=== PATIENT | male | born 2000 | race Caucasian/White ===

== ENCOUNTER 2021-06-08 13:19 | Emergency (ER) | payer SELFPAY ==
--- NOTE | 2021-06-08 13:23 | ECG_ITS ---
[facility] Test Date: 2021-06-08 Pat Name: Pool El Department: Room: Gender: Male Flexo Operator: : 2000 Requested By: Angie Osorio Order Number: [id number] Martha MD: Tato Velazquez M.D. Measurements Intervals Taylor Rate: 84 P: 20 NC: 141 QRS: 39 QRSD: 101 T: 11 QT: 334 QTc: 396 Interpretive Statements SINUS RHYTHM WITH SINUS ARRHYTHMIA No previous ECG available for comparison Electronically Signed On 06-09-2021 0:54:08 CDT by Tato Velazquez M.D. [id number]
--- NOTE | 2021-06-08 13:23 | XR_ITS ---
WS: [id number] XR chest 1V portable [id number] REASON FOR EXAM: chest pain FINDINGS: The heart and the mediastinum are within normal limits. No active pulmonary parenchymal or pleural disease is noted. The bony thorax is intact. XR/XR chest 1V portable [id number] IMPRESSION: No acute chest abnormality.
[2021-06-08 13:48] VITALS: BP 163/95; PULSE 111; RESP 18; TEMP 37.7; O2SAT 97; BMI 50.9
[2021-06-08 22:25] VITALS: BP 136/85; PULSE 71; RESP 18; O2SAT 98
--- NOTE | 2021-06-08 22:28 | W.ED.CHESTPA ---
HPI - Chest Pain General: Chief Complaint: Chest Pain Stated Complaint: CHEST PAINS Time Seen by Provider: 06/08/21 22:25 History of Present Illness: HPI narrative: Patient is a 21-year-old male comes to the ED with chest pain. Patient says he has a history of anxiety and has had similar chest pain with like this before. He was riding tractor at work earlier today when when symptoms started. Says he has been trying to drink a lot of water since he has been outside working in the heat for the past couple days. He described having a deep aching pain in the center of chest. He says he took a couple aspirin before coming to the ED. Patient did state that he has got a lot of financial and work-related stress going on currently and thinks that could be the cause of his symptoms. Patient said his chest pain resolved when he arrived here to the ED. While in the ED waiting room and when patient was put back into her room here in the ED he had no chest pain and his symptoms had resolved completely. Patient says he felt completely normal. Denied any shortness of breath, nausea or vomiting upon symptom onset. Associated symptoms: Deny abdominal pain, dyspnea, fever(s), nausea, palpitations or vomiting Review of Systems Const: Denies: fever(s), chills or fatigue Eyes: Denies: change in vision or eye discomfort ENMT: Denies: throat pain, odynophagia, nasal discharge or nasal congestion Card: Reports: chest pain (Resolved upon arrival to the ED.); Denies: palpitations, edema, swelling of feet/ankles, dyspnea on exertion or orthopnea Resp: Denies: dyspnea, productive cough or non-productive cough GI: Denies: abdominal pain, nausea, vomiting, diarrhea, constipation or hematochezia : Denies: flank pain, difficulty urinating, dysuria or hematuria Musc: Denies: neck pain, back pain or extremity swelling Skin/Breast: Denies: rash or new lesions Neuro: Denies: headache(s), numbness in extremities or weakness in extremities Physical Exam Const: COMMON NORMALS: no acute distress, patient oriented x3 and alert GENERAL APPEARANCE: cooperative and comfortable NUTRITIONAL APPEARANCE: obese HENMT: COMMON NORMALS: normocephalic HEAD & SCALP: normocephalic MOUTH: Normal oral and palatal mucosa present THROAT: posterior oropharynx normal and uvula midline Eye: COMMON NORMALS: Equal, round and reactive pupils present PUPIL: Yes Equal, round and reactive pupils present Neck/C-Spine: COMMON NORMALS: supple GENERAL: Yes normal visual inspection Resp: COMMON NORMALS: normal respiratory effort, No retractions, No use of accessory muscles and clear to auscultation bilaterally AUSCULTATION: clear to auscultation bilaterally Cardio: COMMON NORMALS: regular rate, regular rhythm, S1 normal heart sound present, S2 normal heart sound present, No gallops present (Cardio), No clicks present (Cardio), No murmurs present (Cardio) and Peripheral pulses 2+ throughout RATE: regular rate RHYTHM: regular rhythm HEART SOUNDS: S1 normal heart sound present and S2 normal heart sound present PERIPHERAL PULSES: Peripheral pulses 2+ throughout GI: COMMON NORMALS: Normal to inspection, nondistended, normoactive bowel sounds present, Soft to palpation, non-tender and no masses INSPECTION: Yes central obesity PALPATION: Yes Soft to palpation : COMMON NORMALS: Yes no CVA tenderness BLADDER/KIDNEY EXAM: Yes no CVA tenderness Back/Pelvis: COMMON NORMALS: no CVA tenderness Extremity: COMMON NORMALS: normal to inspection Neuro: COMMON NORMALS: patient oriented x3 and moves all extremities SENSORIUM/ORIENTATION: Yes alert Skin: GENERAL SKIN EXAM: dry skin Course Vital Signs: Vital signs: Vital Signs Temperature 99.8 F H 06/08/21 13:48 Pulse Rate 78 06/08/21 22:58 Respiratory Rate 18 06/08/21 22:58 Blood Pressure 136/85 06/08/21 22:25 Pulse Oximetry 98 06/08/21 22:58 MDM - Chest Pain MDM Narrative: Medical decision making narrative: Patient is a 21-year-old male comes to the ED with chest pain. Patient has a history of anxiety and panic attacks with similar chest pain. By the time patient got to the ED his chest pain had resolved. Patient says he has been under a lot of work and financial stress lately. Chest x-ray was normal and EKG showed normal sinus rhythm with no ST segment elevation or depression seen. Vitals are stable. Exam of patient is benign he appears in no acute distress or pain. Patient diagnosed with noncardiac chest pain and discharged home. Told to follow-up with PCP in 7 to 10 days reevaluation. Return ED precautions given. Patient understood agree with plan. Imaging Data^: CXR: Attestation: I personally reviewed and interpreted this imaging study as follows: Radiologist's impression: [facility] [address] [place] [address] XRay Report Signed Patient: Pool El Unit #: [id number] : 2000 Age/Sex: 21 / M ADM Date: 06/08/21 Loc: ER Room/Bed: Attending Dr: Ordering Provider/Ordering MD: Angie Osorio Date of Service: 06/08/21 Procedure(s): XR chest 1V portable [id number] Accession Number(s): [id number] Report Number: [id number] WS: [id number] XR chest 1V portable [id number] REASON FOR EXAM: chest pain FINDINGS: The heart and the mediastinum are within normal limits. No active pulmonary parenchymal or pleural disease is noted. The bony thorax is intact. XR/XR chest 1V portable [id number] IMPRESSION: No acute chest abnormality. Dictated By: Dima Menon Jr, MD Signed By: Dima Menon Jr, MD Signed Date/Time: 06/08/21 135 DD/ 1357 EKG Data^: EKG 1: Attestation: I personally reviewed and interpreted this EKG as follows: EKG interpretation date: 06/08/21 Interpretation: Normal sinus rhythm, 84 bpm, no ST segment elevation or depression seen. Discharge Plan Discharge Patient Disposition: Home Clinical Impression: Chest pain, non-cardiac Condition: Stable Discharge Orders: Discharge ED (Routine); Ordered 06/08/21 Ordered By: Nabeel Kimball Referrals: Sumit Freeman DO [Primary Care Provider] - Discharge Diet: Regular Discharge Activity: Resume usual activity Patient Instructions: Stress (ED), Noncardiac Chest Pain (ED) Activity Restrictions/Additional Instructions: Follow-up with medical provider as directed in 5 days for reevaluation. Make sure you are drinking plenty of water and staying hydrated when you are outside working. Return to the ER or your medical provider if condition worsens. Please read and understand discharge instructions. Thank you for choosing [facility] for your healthcare needs today. Please realize this is an emergency room and that we are providing you with a medical screening exam and this may not be complete and all inclusive of all the testing and or work up that you may need to determine your ailment or severity of your illness. It is very important that you follow up as instructed or that you return to the Emergency Department should you have concerns or if your condition changes or worsens in any way. Coding Level of Care Code ED Technical Project Manager for [facility] Exam Comprehensive
[2021-06-08 22:58] VITALS: PULSE 78; RESP 18; O2SAT 98
== END 2021-06-08 22:59 | disposition home or self-care (01) ==
PROVIDERS: Emergency Provider Physician Assistant; PCP Family Medicine
DX: R07.89 Other chest pain (principal)
CPT/HCPCS: 71045; 93005; 99283

== ENCOUNTER → 2022-07-27 11:47 | Outpatient (BNVA) | payer SELFPAY | PROVIDERS: PCP Family Medicine; Visit Provider Emergency Medicine | DX: N39.0 Urinary tract infection, site not specified (principal); R30.0 Dysuria | CPT/HCPCS: 81000; 87086 ==